=== PATIENT | male | born 1975 ===

== ENCOUNTER 2017-06-27 12:52 | Emergency (ER) | payer BC ==
--- NOTE | 2017-06-27 13:11 | UC ---
Nausea/Vomiting/Diarrhea HPI - HPI Summary HPI Summary: 42 year old male presents with complains of abdominal pain and diarrhea. - History of Current Complaint Chief Complaint: UCGI Stated Complaint: VOMITING Time Seen by Provider: 06/27/17 13:11 Hx Obtained From: Patient Onset/Duration: Sudden Onset Severity Initially: Moderate Severity Currently: Moderate Pain Scale Used: 0-10 Numeric - 5 Location: Diffuse Character: Sharp - Allergies/Home Medications Allergies/Adverse Reactions: Allergies Allergy/AdvReac Type Severity Reaction Status Date / Time Penicillin G Allergy Unknown Verified 06/27/17 13:09 Reaction Details Home Medications: Home Medications LORazepam TAB(*) [Ativan 1 MG TAB (*)] 1 mg BID PRN 06/27/17 [History Confirmed 06/27/17] PMH/Surg Hx/FS Hx/Imm Hx Previously Healthy: Yes - Surgical History Surgical History: Yes Surgery Procedure, Year, and Place: TONSILLECTOMY; TUBES IN EARS; ADENOIDS REMOVED A CHILD Review of Systems Constitutional: Negative Skin: Negative Eyes: Negative ENT: Negative Respiratory: Negative Cardiovascular: Negative Gastrointestinal: Abdominal Pain, Diarrhea Genitourinary: Negative Motor: Negative Neurovascular: Negative Musculoskeletal: Negative Neurological: Negative Psychological: Negative All Other Systems Reviewed And Are Negative: Yes Physical Exam Triage Information Reviewed: Yes Vital Signs Reviewed: Yes Eye Exam: Normal ENT Exam: Normal Dental Exam: Normal Neck exam: Normal Neck: Positive: 1 Respiratory Exam: Normal Cardiovascular Exam: Normal Abdominal Exam: Normal Musculoskeletal Exam: Normal Neurological Exam: Normal Psychological Exam: Normal Skin Exam: Normal Naus/Vom/Diarrhea Course/Dx - Differential Dx/Diagnosis Provider Diagnoses: diarrhea Condition At Discharge: Stable Discharge - Discharge Plan Condition: Stable Disposition: HOME Prescriptions: Dicyclomine CAP* [Bentyl CAP*] 10 mg PO TID PRN #30 cap PRN Reason: Pain Diphenoxylat/Atrop 2.5-0.025M* [Lomotil TAB*] 1 tab PO TID PRN #9 tab MDD 3 PRN Reason: Diarrhea Patient Education Materials: Acute Diarrhea (ED) Referrals: Maulik Begum MD [Primary Care Provider] -
[2017-06-27 13:17] VITALS: BP 132/78
== END 2017-06-27 13:41 | disposition home or self-care (01) ==
LOC: UCCORT 12:52
DX: R19.7 Diarrhea, unspecified (principal)
CPT/HCPCS: 81003; 99212; G0463